=== PATIENT | male | born 2000 | race Caucasian/White ===

== ENCOUNTER 2018-09-14 19:13 | Emergency (ER) ==
[~2018-09-14] VITALS: Ht 182.9 cm; Wt 65.8 kg
[~2018-09-14 19:13] MED LIST: NO MEDS
[2018-09-14 19:43] VITALS: BP 135/78
== END 2018-09-14 19:58 | disposition home or self-care (01) ==
LOC: ER 19:25
DX: S01.01XD Laceration without foreign body of scalp, subsequent encounter (principal); X58.XXXD Exposure to other specified factors, subsequent encounter; J45.909 Unspecified asthma, uncomplicated
CPT/HCPCS: A4606; A6402; Z7502; Z7610

== ENCOUNTER 2018-11-06 10:48 | Emergency (ER) | payer OTHER ==
[~2018-11-06] VITALS: Ht 182.9 cm; Wt 68.0 kg
[2018-11-06 11:57] VITALS: BP 133/66
== END 2018-11-06 11:58 | disposition home or self-care (01) ==
LOC: ER 10:50
DX: S01.312D Laceration without foreign body of left ear, subsequent encounter (principal); J45.909 Unspecified asthma, uncomplicated; Y04.0XXD Assault by unarmed brawl or fight, subsequent encounter
CPT/HCPCS: 99283; A4606; Z7610

== ENCOUNTER 2018-11-07 10:06 | Emergency (ER) | payer OTHER ==
[~2018-11-07] VITALS: Ht 182.9 cm; Wt 68.0 kg
[2018-11-07 10:15] VITALS: BP 125/71
== END 2018-11-07 10:42 | disposition home or self-care (01) ==
LOC: ER 10:07
DX: S01.312D Laceration without foreign body of left ear, subsequent encounter (principal); M79.10 Myalgia, unspecified site; J45.909 Unspecified asthma, uncomplicated; Y08.89XD Assault by other specified means, subsequent encounter
CPT/HCPCS: A4606; A6402; Z7610